=== PATIENT | female | born 1945 | race African-American/Black ===

== ENCOUNTER 2018-03-05 12:41 | Emergency (ER) | payer BC, MEDICARE ==
[~2018-03-05] VITALS: Ht 172.7 cm; Wt 84.5 kg
[2018-03-05] MEDS ORDERED: KETOROLAC TROMETHAMINE 60 MG/2 ML (IM) VIAL IM ONE (13:00)
--- NOTE | 2018-03-05 13:01 | PD ---
HPI Chief Complaint: knee pain Time Seen by Provider: 12:56 Travel History International Travel<30 days: No Contact w/Intl Traveler<30days: No Traveled to known affect area: No History of Present Illness HPI 72-year-old female presents emergency department accompanied by her daughter for evaluation of left knee pain. Patient states this has been for months. She denies any trauma. She states it exacerbated with flexion or walking. It is a moderate pain that is constant. She has no other symptoms to report. PFSH Past Medical History Hypertension: Yes Social History Tobacco Use: No Allergies-Medications (Allergen,Severity, Reaction): Coded Allergies: No Known Allergies (Unverified , 03/05/18) Reported Meds & Prescriptions Reported Meds & Active Scripts Active Mobic (Meloxicam) 7.5 Mg Tab 7.5 Mg PO DAILY PRN 7 Days Review of Systems Except as stated in HPI: all other systems reviewed are Neg Physical Exam Narrative GENERAL: Well-nourished, well-developed elderly female patient in no acute distress SKIN: Focused skin assessment warm/dry. HEAD: Normocephalic. EYES: No scleral icterus. No injection or drainage. NECK: Supple, trachea midline. No JVD or lymphadenopathy. CARDIOVASCULAR: Regular rate and rhythm RESPIRATORY: Breath sounds equal bilaterally. No accessory muscle use. MUSCULOSKELETAL: No cyanosis, or edema. Tenderness elicited palpation of the anterior aspect of left knee. No deformity. Patient fully flex and extend the knee. Distal pulses are palpable. Cap refills within normal limits. BACK: Nontender without obvious deformity. No CVA tenderness. Data Data Last Documented VS Vital Signs Date Time Temp Pulse Resp B/P (MAP) Pulse Ox O2 Delivery O2 Flow Rate FiO2 03/05/18 14:35 70 15 120/68 (85) 97 03/05/18 13:19 98.0 Orders Orders Knee, Complete (4vws) (03/05/18 ) Ketorolac Inj (Toradol Inj) (03/05/18 13:00) Ed Discharge Order (03/05/18 14:33) MDM Medical Decision Making Medical Screen Exam Complete: Yes Emergency Medical Condition: Yes Medical Record Reviewed: Yes Differential Diagnosis Osteoarthritis versus effusion versus sprain versus contusion Narrative Course 72-year-old female presents to emergency department for evaluation left knee pain. X-ray imaging confirms no acute bony abnormality. There is a small joint effusion. Patient is counseled on care. She is encouraged to seek orthopedic evaluation. She agrees to return immediately with acute worsening symptoms. Diagnosis Primary Impression: Left knee pain Qualified Codes: M25.562 - Pain in left knee; G89.29 - Other chronic pain Additional Impression: Joint effusion Referrals: Orthopaedic Surgeon Patient Instructions: General Instructions, Knee Exercises (GEN), Knee Pain (ED ) Additional Instructions: Follow-up with nurse orthopedic Ice and/or heat and elevate may help to alleviate symptoms Follow-up with a primary care provider Do not take other NSAIDs such as ibuprofen or Aleve with your prescribed medicine Return immediately with acute worsening symptoms Med/Other Pt SpecificInfo: Prescription(s) given Scripts Meloxicam (Mobic) 7.5 Mg Tab 7.5 MG PO DAILY Y for PAIN SCALE 1 TO 10 for 7 Days, #7 TAB 0 Refills Prov: Leanna Donohue 03/05/18 Disposition: 01 DISCHARGE HOME Condition: Stable Leanna Donohue Mar 05, 2018 13:01
[2018-03-05 13:19] VITALS: BP 122/62; PULSE 77; RESP 16; TEMP 98; O2SAT 100
--- NOTE | 2018-03-05 14:22 | RADRPT ---
EXAM DATE: 03/05/2018 1:39 PM EDT AGE/SEX: 72 years / Female INDICATIONS: Pain in left knee that has become worse in the last 2 months. No known trauma. CLINICAL DATA: This is the patient's initial encounter. Patient reports that signs and symptoms have been present for 2 months and indicates a pain score of 5/10. MEDICAL/SURGICAL HISTORY: None. None. COMPARISON: No prior exams available for comparison. FINDINGS: Generative changes are present in the lateral compartment with loss articular cartilage. Minimal join t effusion is evident. Alignment anatomic. Fracture is not appreciated. CONCLUSION: Trace joint effusion with degenerative changes lateral compartment. Electronically signed by: Eleazar Osei MD 03/05/2018 2:20 PM EDT
[2018-03-05 14:35] VITALS: BP 120/68
[2018-03-05] MEDS ORDERED: MOBI7.5T PO ×3 (14:38→14:43)
== END 2018-03-05 15:23 | disposition home or self-care (01) ==
LOC: NEPE 12:41
DX: M25.562 Pain in left knee (principal); G89.29 Other chronic pain; M25.462 Effusion, left knee; I10 Essential (primary) hypertension
CPT/HCPCS: 73564; 96372; 99283; J1885